=== PATIENT | female | born 1960 | race Caucasian/White ===

== ENCOUNTER 2017-04-09 11:56 | Emergency (ER) | payer OTHER ==
[~2017-04-09] VITALS: Ht 160 cm; Wt 95.0 kg
[2017-04-09 11:59] VITALS: BP 150/83; PULSE 110; RESP 16; O2SAT 100
--- NOTE | 2017-04-09 12:18 | ED.REPORT ---
HPI-Abd Pain F 40 and Over Date of Service Apr 09, 2017 ED Provider: Az Smith MD Patient is a 56 year old female with a hx of kidney stones and a cholecystectomy 3 mo ago who presents to the ED complaining of LLQ abdominal pain onset last night. She reports that this feels somewhat like previous kidney stones. Her pain is described as cramping that radiates to her pelvis. Associated symptoms include nausea, vomiting and diaphoresis. She denies hematuria (although it was noted in the urine sample by nurse), back pain, fever , or any other symptoms. Patient has not menstruated in over a year. Nursing Notes Stated Complaint: ABDOMINAL PAIN Chief Complaint: Female Abdominal Pain Nursing Notes Reviewed: Yes Allergies: Coded Allergies: prochlorperazine (Verified Allergy, Severe, stroke like symptoms, 04/09/17) General Time Seen by MD: 12:17 Chief Complaint Abdominal pain Hx Obtained From: Patient Arrived By: Walk-in Sudden in Onset?: No Onset Occurred: Yesterday Symptom Duration: Since onset Progression since Onset: Gradually worsening Location: : LLQ Quality: Cramping Radiation: : Pelvis Severity: Current: Moderate Severity: Maximum: Moderate Associated with: Reports: Nausea, Vomiting Pertinent Negative: Pt denies other symptoms Similar Sx Previous: Yes Risk Factors )( AAA Risk Stratification Risk factors reviewed Past Medical History Past Medical History Kidney stones Past Surgical History uterine polyps Reports: Cholecystectomy Smoking History Unknown if Ever Smoker Ambulatory Status Independent Review of Systems Constitutional: Denies: Fever GI: Reports: Abdominal pain, Nausea, Vomiting Female: Denies: Hematuria Musculoskeletal: Denies: Back pain Complete sys rev & neg: except as marked. Skin: Reports Diaphoresis Physical Exam Vital Signs Vital Signs (First) Date Time Temp Pulse Resp B/P Pulse Ox O2 Delivery O2 Flow Rate FiO2 04/09/17 11:59 36.7 110 16 150/83 100 Room Air Initial VS: Reviewed, Vital signs abnormal Head / Eyes: Atraumatic, Normocephalic Neck: Full range of motion Skin: Warm, Dry Neurologic: Alert, Oriented, Nonfocal General/Constitutional: Awake, Alert Respiratory / Chest: No respiratory distress Cardiovascular: Regular rhythm, Heart sounds NL Heart Rate / Rhythm: Positive: Tachycardia Abdomen: Atraumatic, Soft Tenderness/Guarding/Rebound: Positive: Tender LLQ... Guarding presents Back: Inspection NL Interpretation & Diagnostics Lab Results Interpretation Result Diagram: 04/09/17 1218 04/09/17 1218 Test 04/09/17 12:04 04/09/17 12:18 Hold Urine Received (Received) White Blood Count 7.7th/mm3 (3.8-10.1) Red Blood Count 4.79mil/mm3 (3.90-5.20) Hemoglobin 15.3g/dL (12.0-15.6) Hematocrit 44.5% (35.0-46.0) Mean Corpuscular Volume 92.9fL (81-100) Mean Corpuscular Hemoglobin 31.9pg (27.0-35.0) Mean Corpuscular Hemoglobin Concent 34.4% (32.0-37.0) Red Cell Distribution Width 13.7% (12.3-15.4) Platelet Count 282bil/L (150-400) Neutrophils (%) (Auto) 65.8% (40-74) Lymphocytes (%) (Auto) 25.1% (14-46) Monocytes (%) (Auto) 6.2% (4-12) Eosinophils (%) (Auto) 2.0% (0-5) Basophils (%) (Auto) 0.4% (0-3) Sodium Level 142mEq/L (134-144) Potassium Level 4.1mEq/L (3.5-5.2) Chloride Level 107mEq/L (97-108) Carbon Dioxide Level 18mmol/L (18-29) Blood Urea Nitrogen 14mg/dL (6-24) Creatinine 0.82mg/dL (0.57-1.00) Estimat Glomerular Filtration Rate 103mL/min (>59) Glucose Level 105mg/dL (60-99) Calcium Level 9.1mg/dL (8.5-10.1) Magnesium Level 1.9mg/dL (1.6-2.6) Total Bilirubin 0.5mg/dL (0.0-1.2) Aspartate Amino Transf (AST/SGOT) 18U/L (0-50) Alanine Aminotransferase (ALT/SGPT) 12U/L (0-32) Alkaline Phosphatase 86U/L (25-150) Total Protein 7.1g/dL (6.4-8.4) Albumin 4.1g/dL (3.4-5.0) Lipase 25U/L (13-60) CT Abd / Pelvis Interpretation IMPRESSION: 1. 5 mm left ureteral stone at the level of the iliac vessels causes mild hydroureteronephrosis. 2. Several additional bilateral nonobstructing renal stones, measuring up to 5 mm on the right. 3. 1.5 cm fundal subserosal uterine fibroid. Dictated by: Jah Robles M.D. on 04/09/2017 at 13:47 Approved by: Jah Robles M.D. on 04/09/2017 at 13:56 Study type: Abdominal CT IV contrast Interpretation / Wet Read by: Interpret - Radiologist Discharge & Departure Primary Impression: Ureterolithiasis Disposition: Home Discharge Condition All VS Reviewed: Yes Condition: Stable Patient Instructions: Renal Colic (ED) Additional Instructions: You have a 5 mm stone in the left ureter about half way down toward the bladder. I recommend copious oral hydration. Strain the urine and try to collect the stone for analysis later on. Bring the stone with you to the clinic for analysis. I recommend Flomax daily, ibuprofen 800 mg every 8 hours and hydrocodone/APAP as needed for more severe pain. Also use ondansetron as needed for nausea. Follow up right away for uncontrolled pain or high fever, otherwise, follow-up in a few days if symptoms not resolving. Rosio Attestation Portions of this note were transcribed by Ayde Quintanilla. I, Dr. Smith personally performed the history, physical exam and medical decision-making; I reviewed and confirmed the accuracy of the information in the transcribed note. Signed by: Rosio Matthews, 04/09/17 Az Smith MD Apr 09, 2017 12:18 AYDE QUINTANILLA Apr 09, 2017 12:23
[2017-04-09] MEDS ORDERED: 0.9% Sodium Chloride 1,000 ML IV ONE (12:20)
[2017-04-09] MEDS ORDERED: HYDROmorphone 0.5 mg/0.5 mL iSecure Syringe IVPUSH PRN (12:20)
[2017-04-09] MEDS: Ondansetron 2 mg/mL 2 mL Inj IVPUSH PRN ×2 (12:29→14:02)
[2017-04-09 12:33] LABS: BASOPHILS % (AUTO) 0.4 % (0-3); MONOCYTES % (AUTO) 6.2 % (4-12); Mean Corpuscular Hemoglobin 31.9 pg (27.0-35.0); Mean Corpuscular Volume 92.9 fL (81-100); NEUTROPHILS % (AUTO) 65.8 % (40-74); Platelet Count 282 bil/L (150-400)
[2017-04-09 12:50] LABS: Magnesium 1.9 mg/dL (1.6-2.6)
--- NOTE | 2017-04-09 13:58 | DRSVH ---
PROCEDURE: CT ABDOMEN AND PELVIS WITH CONTRAST ([id number]) INDICATIONS: 56 year-old female with left lower quadrant abdominal pain. TECHNIQUE: After the administration of intravenous contrast, 5 mm thick sections acquired from the diaphragm to the symphysis. 5 mm coronal and sagittal reformats were acquired. For radiation dose reduction, the following was used: automated exposure control, adjustment of mA and/or kV according to patient siz e. COMPARISON: None. FINDINGS: Image quality: Excellent. ABDOMEN: Lung bases: Lung bases are clear, except for linear right lung base scarring. Heart size is normal. Solid organs: Liver and spleen are normal in size and enhancement. Gallbladder is surgically absent . Biliary system is non dilated. Pancreas enhances normally. No adrenal nodules. Kidneys demonstr ate normal size and enhancement, with mild left hydroureteronephrosis. On axial image 54, a 5 mm left ureteral stone lies at the level of the iliac vessels. Several additional bilateral nonobstructing r enal stones are present, measuring up to 5 mm on the right, and 2 mm on the left. Peritoneum and bowel: Bowel loops demonstrate normal wall thickness and caliber. The appendix is no rmal in caliber. No free fluid or air. Nodes and vessels: No retroperitoneal or mesenteric adenopathy by size criteria. Aorta and inferior vena cava are normal in size, with scattered aortoiliac atherosclerosis. Miscellaneous: No ventral hernias. PELVIS: Genitourinary: Bladder wall thickness is normal. Uterus and ovaries are normal in size, with 1.5 cm uterine fundal subserosal fibroid. Miscellaneous: No inguinal hernias or adenopathy. Bones: No suspicious bony lesions. No vertebral body compression fractures. There is lower lumbar and lower thoracic spine disc degeneration. Incidental right L1 and L2 vertebral body hemangiomas are present. IMPRESSION: 1. 5 mm left ureteral stone at the level of the iliac vessels causes mild hydroureteronephrosis. 2. Several additional bilateral nonobstructing renal stones, measuring up to 5 mm on the right. 3. 1.5 cm fundal subserosal uterine fibroid. Dictated by: Jah Robles M.D. on 04/09/2017 at 13:47 Approved by: Jah Robles M.D. on 04/09/2017 at 13:56
[2017-04-09 14:14] VITALS: BP 123/62; PULSE 76; RESP 16; O2SAT 98
[2017-04-09] MEDS ORDERED: HYDR-4003 PO (15:13)
[2017-04-09] MEDS ORDERED: TAMS0.4C98 PO (15:13)
[2017-04-09] MEDS ORDERED: ONDA4TAB9 PO (15:13)
[2017-04-09 15:32] VITALS: BP 144/85; PULSE 101; RESP 16; O2SAT 95
== END 2017-04-09 15:32 | disposition home or self-care (01) ==
LOC: SED 11:56
DX: N20.1 Calculus of ureter (principal); Z87.442 Personal history of urinary calculi; Z90.49 Acquired absence of other specified parts of digestive tract; Z88.8 Allergy status to other drugs, medicaments and biological substances
CPT/HCPCS: 36415; 74177; 80053; 83690; 83735; 85025; 87086; 87088; 96361; 96374; 96375; 96376; 99285; J1170; J1885; J2405; J7030; Q9967